=== PATIENT | male | born 1945 | race Caucasian/White ===

== ENCOUNTER 2018-11-25 08:04 | Day surgery (SDC) | payer MEDICARE ==
[2018-11-24 12:49] VITALS: BMI 29.0
[2018-11-25 10:34] LABS: Anion Gap 11 mmol/L (10-20); BUN (Urea Nitrogen) 13 mg/dL (8.4-25.7); Calc. Creatinine Clearance 113 mL/min (70-130); Calcium 9.4 mg/dL (7.8-10.44); Carbon Dioxide 24 mmol/L (23-31); Chloride 107 mmol/L (98-107); Estimated GFR-MDRD Greater than 90; Glucose 107 mg/dL (83-110); Potassium 4.3 mmol/L (3.5-5.1); Sodium 138 mmol/L (136-145)
[2018-11-25 10:37] LABS: Hemoglobin 17.2 g/dL (14.0-18.0); Mean Corpuscular HGB CONC 31.7 g/dL (32.0-36.0); Mean Corpuscular Hemoglobin 32.2 pg (27.0-31.0); Mean Platelet Volume 7.4 fL (7.4-10.4); Platelet Count 185 thou/uL (130-400); Red Blood Cell (RBC) Count 5.32 mill/uL (4.70-6.10); White Blood Cell (WBC) Count 7.3 thou/uL (4.8-10.8)
[2018-11-25 11:09] LABS: #Eosinphils 0.1 thou/uL (0.0-0.7); #Lymphocytes 2.3 thou/uL (1.20-3.40); #Monocytes 0.9 thou/uL (0.11-0.59); #Neutrophils 3.9 thou/uL (1.40-6.50); %Basophils 0.4 % (0.0-1.0); %Eosinophils 1.8 % (0.0-10.0); %Lymphocytes 31.3 % (21.0-51.0); %Monocytes 12.7 % (0.0-10.0); %Neutrophils 53.8 % (42.0-75.0)
[2018-11-25] MEDS ORDERED: Fentanyl 100 MCG/2 ML VIAL ONE (12:35)
[2018-11-25] MEDS ORDERED: Propofol 500 MG/50 ML VIAL ONE (12:35)
[2018-11-25] MEDS ORDERED: Midazolam HCl 2 mg/2 ml Vial ONE (12:35)
[2018-11-25] MEDS ORDERED: EPINEPHrine 1 MG/ML AMP ONE (12:37)
[2018-11-25] MEDS ORDERED: Ondansetron PF 4 MG/2 ML Vial ONE (15:15)
[2018-11-25] MEDS ORDERED: Lidocaine 1% PF 5 ML VIAL ONE (15:15)
[2018-11-25] MEDS ORDERED: Succinylcholine Chloride 20 MG/ML 10 ml SYRINGE FS ONE (15:15)
[2018-11-25] MEDS ORDERED: Dexamethasone 20 MG/5 ML VIAL ONE (15:15)
[2018-11-25] MEDS ORDERED: PROPOFOL 200 MG/20 ML VIAL ONE (15:15)
--- NOTE | 2018-11-25 18:44 | EKG ---
Test Reason : PREOP Blood Pressure : / mmHG Vent. Rate : 068 BPM Atrial Rate : 068 BPM P-R Int : 196 ms QRS Dur : 130 ms QT Int : 408 ms P-R-T Axes : 055 -56 -11 degrees QTc Int : 433 ms Normal sinus rhythm Left axis deviation Left bundle branch block Abnormal ECG No previous ECGs available Confirmed by DR. Simran GALLO ([id number]) on 11/25/2018 6:44:26 PM Referred By: Sreedhar SCOTT Confirmed By:DR. Simran GALLO
--- NOTE | 2018-11-26 15:40 | OP ---
DATE OF PROCEDURE: 11/25/2018 PREOPERATIVE DIAGNOSES: 1. Laryngeal mass. 2. Dysphonia. POSTOPERATIVE DIAGNOSES: 1. Laryngeal mass. 2. Dysphonia. PROCEDURE PERFORMED: Microsuspension direct laryngoscopy with biopsy. ESTIMATED BLOOD LOSS: 10 mL. COMPLICATIONS: None. ANESTHESIA: GETA. DESCRIPTION OF PROCEDURE: The patient was taken to operating room and placed supine on the table. General endotracheal anesthesia was obtained by the anesthesia staff. The Gudelia Jet ventilation tube was secured and was providing respiratory support adequately. Following this, a shoulder roll was placed and the upper lips and gums were protected. The patient was prepped and draped for standard oral procedures. Following this, the Dedo laryngoscope was used to examine the oral cavity and oropharynx, mucosa appeared to be clear. The hypopharyngeal structures, vallecula, and base of tongue appeared to be clear. The patient was then placed in suspension exposing the laryngeal inlet. Using the 400 mm lens on the operating microscope, the larynx was visualized. There was a cauliflower-like mass encompassing the left false vocal cord extending from anterior face of the arytenoid almost to the anterior third of the false vocal cord. Straight cup forceps and the laryngeal microdebrider blade were used to remove this lesion. Epinephrine-soaked pledgets were allowed to sit for approximately 5 minutes. The patient tolerated the procedure well. Job ID: [id number]
[2018-11-30 10:13] LABS: Fungus Stain Final report (.)
== END 2018-11-25 15:50 | disposition home or self-care (01) ==
LOC: SDC 08:04
PROVIDERS: ATTEND Otolaryngology Plastic Surgery within the Head & Neck
PROC: 0CBV8ZZ Excision of Left Vocal Cord, Via Natural or Artificial Opening Endoscopic (ICD-10-PCS; principal; 2018-11-25)
DX: J38.3 Other diseases of vocal cords (principal); B96.89 Other specified bacterial agents as the cause of diseases classified elsewhere; M19.90 Unspecified osteoarthritis, unspecified site; I11.9 Hypertensive heart disease without heart failure; E07.9 Disorder of thyroid, unspecified; J34.2 Deviated nasal septum; K21.9 Gastro-esophageal reflux disease without esophagitis; Z87.891 Personal history of nicotine dependence; Z79.82 Long term (current) use of aspirin; Z79.02 Long term (current) use of antithrombotics/antiplatelets; Z79.899 Other long term (current) drug therapy
CPT/HCPCS: 36415; 80048; 85025; 87070; 87076; 87102; 87205; 87206; 88305; 93005; 93010; J0171; J1100; J2001; J2250; J2405; J2704; J3010